=== PATIENT | female | born 1995 | race Two or more races ===

== ENCOUNTER 2024-09-07 06:23 | Emergency (ER) | payer MEDICAID, SELFPAY ==
[2024-09-07 06:23] VITALS: BMI 32.9
[2024-09-07 06:48] VITALS: BP 133/86; PULSE 91; RESP 16; TEMP 36.8; O2SAT 99
--- NOTE | 2024-09-07 06:52 | EDNOTE_ITS ---
ED Neck Injury Pain RME/HPI General Chief Complaint: Neck Pain/Injury Stated Complaint: NECK PAIN X 1DAY Time Seen by Provider: 09/07/24 06:28 Arrival date/time: 09/07/24 06:23 28-year-old female presents to the emergency department today complaint of neck pain ongoing since yesterday when she woke up patient reports no direct trauma patient reports that she went to sleep normally when she woke up she had pain in the right side of her neck Limitations: no limitations Related Data Previous Rx's ?Medication ?Instructions ?Recorded cyclobenzaprine 10 mg tablet 10 mg PO TID PRN muscle s pasm 10 09/07/24 days #30 tab-caps ibuprofen 800 mg tablet 800 mg PO TID PRN pain #30 t abs 09/07/24 Allergies Allergy/AdvReac Type Severity Reaction Status Date / Time No Known Allergies Allergy Unverified 06/19/20 11:30 Review of Systems Review of Systems Systems Reviewed: All systems reviewed, normal except as documented Constitutional Constitutional: Reports system reviewed and no additional complaints, except as documented, Denies fever(s) and Denies headache(s) Eyes Eyes: Reports system reviewed and no additional complaints, except as documented and Denies blurry vision ENT Ears, Nose, Mouth, and Throat: Reports system reviewed and no additional complaints, except as documented, Denies headache(s), Denies nasal congestion, Denies nasal discharge and Reports neck pain Cardiovascular Cardiovascular: Reports system reviewed and no additional complaints, except as documented, Denies chest pain and Denies dyspnea Respiratory Respiratory: Reports system reviewed and no additional complaints, except as documented, Denies chest congestion, Denies cough and Denies dyspnea Gastrointestinal Gastrointestinal: Reports system reviewed and no additional complaints, except as documented and Denies abdominal pain Musculoskeletal Musculoskeletal: Reports system reviewed and no additional complaints, except as documented, Denies deformity, Reports neck pain, Denies numbness, Reports stiffness and Denies tingling Integumentary/Breasts Skin/Breast: Reports system reviewed and no additional complaints, except as documented and Denies rash Neurologic Neurologic: Reports system reviewed and no additional complaints, except as documented, Reports as per HPI, Denies headache(s), Denies numbness and Denies tingling Past Medical History Past Medical History NEUROLOGIC: Negative Seizures CARDIAC: Negative Congestive Heart Failure RESPIRATORY: Negative Chronic Obstructive Pulmonary Disease (COPD) GENITOURINARY: Negative Renal Disease ENDOCRINE: Negative Diabetes Mellitus Type 1 or Diabetes Mellitus Type 2 OTHER HISTORY: Negative Blood Transfusions, Blood Transfusion Reaction or Anesthesia Reactions Social History SMOKING STATUS: Never smoker SUBSTANCE USE: does not use ED Exam General Limitations: Present no limitations General appearance: Present alert and in no apparent distress Head Head exam: Present atraumatic, normocephalic and normal inspection Eye Eye exam: Present normal appearance, PERRL and EOMI; Absent conjunctival injection ENT ENT exam: Present normal exam, normal oropharynx and mucous membranes moist Neck Neck exam: Present normal inspection, full ROM and trachea midline Chest Chest inspection: Present normal inspection and symmetric chest wall rise Respiratory Respiratory exam: Present normal lung sounds bilaterally; Absent respiratory distress Cardiovascular Cardiovascular exam: Present regular rate, normal rhythm and normal heart sounds Abdominal Exam Abdominal exam: Present soft and normal bowel sounds; Absent distention, tenderness, guarding, rebound or rigidity Extremities Exam Extremities exam: Present normal inspection and full ROM Back Exam Back exam: Present normal inspection and full ROM Neurological Exam Neurological exam: Present alert, oriented X3 and CN II-XII intact Psychiatric Psychiatric exam: Present normal affect and normal mood Skin Skin exam: Present warm, dry, intact and normal color Course Quality Measures none Orders Category Date Time Status CYCLObenzaPRINE [Flexeril] Med 09/07/24 06:53 Discontinued 10 mg PO X1 ONE Ibuprofen Tab [Motrin Tab] Med 09/07/24 06:53 Discontinued 800 mg PO X1 ONE Vital Signs Vital signs: Vital Signs Temperature 98.2 F 09/07/24 06:48 Pulse Rate 91 09/07/24 06:48 Respiratory Rate 16 09/07/24 06:48 Blood Pressure 133/86 H 09/07/24 06:48 Pulse Oximetry (%) 99 09/07/24 06:48 Oxygen Delivery Method Room Air 09/07/24 06:48 O2 saturation 99% room air within normal limits Neck Pain MDM Narrative MDM Narrative:: 28-year-old female presents to the emergency department today complaint of neck pain ongoing since yesterday when she woke up patient reports no direct trauma patient reports that she went to sleep normally when she woke up she had pain in the right side of her neck Patient reports she has no nausea or vomiting or fever no headache dizziness or weakness Patient given Flexeril and ibuprofen Symptoms are highly consistent with torticollis should symptoms persist or worsen patient is instructed to return for reevaluation and possible imaging Patient discharged home in no distress to follow-up with primary care doctor in the next 24 to 48 hours and for any worsening symptoms to return to the ER immediately Patient data External records reviewed:: [facility] previous records Clinical information provided by:: patient Social determinants that could affect healthcare access:: none Patient has the following chronic illnesses:: None How is presenting disease/condition affected by chronic disease/condition?: no chronic disease Evaluation data The following diagnostics were reviewed and interpreted by me:: other (specify) Lab and/or radiology exams considered but not ordered:: Consider not ordered Interpretation Summary: N/A Medications / Prescriptions Medications or Prescriptions considered but not ordered:: Given Medication administrations:: Medication Administration History Discontinued Medications Cyclobenzaprine HCl (Cyclobenzaprine 5 Mg Tablet) 10 mg PO X1 ONE Stop: 09/07/24 06:54 Ibuprofen (Ibuprofen Tab 400 Mg Tablet) 800 mg PO X1 ONE Stop: 09/07/24 06:54 Given Consultations Consultation(s) initiated? (list below): No Diagnosis Neck Differential Diagnosis: closed subluxation of cervical spine, cervical radiculopathy and strain of neck muscle Most likely diagnosis given after review of the tests above:: Neck pain Admission Indicated Admission indicated?: not indicated Admission Request Was there a request for admission?: No Disposition Plan Disposition Plan: Discharge Discharge Attestation Discharge Attestation: The patient and all family members were given an opportunity to ask questions and understood the discharge instructions. Discharge instructions specifically effects, indications for sooner follow up or return to the emergency department, and the expected course of current diagnosis. Patient condition: Stable Discharge Plan Plan Patient Disposition: HOME (Self Care) Disposition Comment: Stable Prescriptions/Referrals Prescriptions/Med Rec: New cyclobenzaprine 10 mg tablet 10 mg PO TID PRN (Reason: muscle spasm) 10 Days Qty: 30 0RF ibuprofen 800 mg tablet 800 mg PO TID PRN (Reason: pain) Qty: 30 0RF Referrals: Temporary Provider,ED [Physician] - In 1 week Problem List Clinical Impression: Acute torticollis Patient/Caregiver Discharge Instructions Education Materials: Torticollis (Wry Neck) Additional Instructions: Please follow up with your primary care doctor in the next 24-48hrs for any worsening symptoms return here immediately Print Language: Chinese Stand Alone Forms: Arline Award Info., Work/School Release, Patient Portal Info Letter PA/VALIDATION TECHNICIAN Supervising Physician PA/VALIDATION TECHNICIAN Supervising Physician: dr [email or web address]
[2024-09-07] MEDS: IBUPROFEN TAB 400 MG TABLET 800 MG PO (07:11)
[2024-09-07] MEDS: CYCLObenzaPRINE 5 MG TABLET 10 MG PO (07:11)
== END 2024-09-07 07:14 | disposition home or self-care (01) ==
LOC: SERX 06:59
PROVIDERS: Emergency Provider Emergency Medicine; PCP Family Medicine
DX: M43.6 Torticollis (principal)
CPT/HCPCS: 99282; A9270